=== PATIENT | male | born 1985 | race Caucasian/White ===

== ENCOUNTER 2023-08-03 10:20 | Day surgery (SDC) | payer MEDICAID, SELFPAY ==
[2023-08-03] VITALS (7 sets, daily range): BP systolic 109–129; BP diastolic 78–85; PULSE 58–87; RESP 14–16; TEMP 36.1–36.6; O2SAT 91–94; BMI 33.6
[2023-08-03] MEDS: Lactated Ringers 1,000 ML 15 ML IV (10:56)
--- NOTE | 2023-08-03 11:05 | RAD_ITS ---
STUDY: X-RAY - RIGHT WRIST REASON FOR EXAM: Male, 37 years old. FX TECHNIQUE: 2 view(s) of the wrist were obtained. COMPARISON: None. FINDINGS: Intraoperative imaging provided for ORIF of the radial fracture. RAD/Wrist 2 Views IMPRESSION: Intraoperative imaging provided for ORIF of the radial fracture. Electronically Signed: Galileo Lovett MD at 14:02 EDT ,
[2023-08-03] MEDS: Cefazolin 2 GM in 0.9% Normal Saline (100mL Bag) 100 ML IV (12:07)
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
[2023-08-03] MEDS: Ketorolac 30 MG/ML Syringe IV (14:02)
== END 2023-08-03 16:02 | disposition home or self-care (01) ==
LOC: SDC 10:24 → AC 10:25
PROVIDERS: Referring Provider Student in an Organized Health Care Education/Training Program; Visit Provider Student in an Organized Health Care Education/Training Program
PROC: (CPT 25605; principal; 2023-08-03 11:45)
DX: S52.371A Galeazzi's fracture of right radius, initial encounter for closed fracture (principal); M25.30 Other instability, unspecified joint; M79.631 Pain in right forearm; E66.9 Obesity, unspecified; Z68.33 Body mass index [BMI] 33.0-33.9, adult; V19.9XXA Pedal cyclist (driver) (passenger) injured in unspecified traffic accident, initial encounter
CPT/HCPCS: 25605; 25505; 01820; 73100; 76000; C1713; J7120; J2405